=== PATIENT | male | born 1965 | race Caucasian/White ===

== ENCOUNTER 2018-08-19 07:08 | Emergency (ER) | payer MEDICARE, MEDICAID ==
[2018-08-19 07:10] VITALS: BP 126/87
--- NOTE | 2018-08-19 08:12 | NUR ---
Patient/Caregiver given discharge instructions and they have confirmed that they understand the instructions. Patient ambulatory with steady gait.
[2018-08-19] MEDS ORDERED: BACITRACIN ZINC OINT 500U/GM, 0.9 GM ONE (09:07)
== END 2018-08-19 08:13 | disposition home or self-care (01) ==
LOC: ED 07:55
DX: L02.212 Cutaneous abscess of back [any part, except buttock and flank] (principal)
CPT/HCPCS: 99283

== ENCOUNTER 2018-08-21 07:08 | Emergency (ER) | payer MEDICARE, MEDICAID ==
[~2018-08-21] VITALS: Ht 165.1 cm; Wt 70.9 kg
[2018-08-21 07:10] VITALS: BP 114/78
--- NOTE | 2018-08-21 07:20 | NUR ---
CONTACT WITH PT, 53 YR OLD MALE HERE FOR RE-EVAL OF ABCESS ON BACK. DRESSING TO BACK WITH SLIGHT DRAINAGE NOTED.
== END 2018-08-21 08:00 | disposition home or self-care (01) ==
LOC: ED 07:40
DX: L02.212 Cutaneous abscess of back [any part, except buttock and flank] (principal); Z88.0 Allergy status to penicillin
CPT/HCPCS: 99282

== ENCOUNTER 2018-08-24 06:07 | Emergency (ER) | payer MEDICARE, MEDICAID ==
[~2018-08-24] VITALS: Ht 165.1 cm; Wt 70.0 kg
[2018-08-24 06:08] VITALS: BP 112/77
--- NOTE | 2018-08-24 06:21 | NUR ---
PT HERE FOR DRESSING CHANGE TO ABSCESS THAT WAS DRAINED. REMOVED OLD GAUZE DRESSING AND PACKING. AREA REPACKED AND COVERED WITH GAUZE.
--- NOTE | 2018-08-24 06:36 | NUR ---
Patient/Caregiver given discharge instructions and they have confirmed that they understand the instructions. Patient ambulatory with steady gait.
== END 2018-08-24 06:38 | disposition home or self-care (01) ==
LOC: ED 06:27
DX: L02.212 Cutaneous abscess of back [any part, except buttock and flank] (principal)
CPT/HCPCS: 99283